=== PATIENT | female | born 1995 | race Caucasian/White ===

== ENCOUNTER → 2022-02-06 08:47 | Outpatient (BNVA) | payer BC, SELFPAY | PROVIDERS: PCP Family Medicine; Visit Provider Family Medicine | DX: Z13.1 Encounter for screening for diabetes mellitus (principal); R53.83 Other fatigue; Z13.6 Encounter for screening for cardiovascular disorders; Z68.41 Body mass index [BMI] 40.0-44.9, adult; Z12.4 Encounter for screening for malignant neoplasm of cervix; G44.229 Chronic tension-type headache, not intractable; G47.09 Other insomnia | CPT/HCPCS: 80053; 80061; 82607; 82652; 84443; 85025; 88175 ==

== ENCOUNTER → 2022-07-08 11:57 | Outpatient (BNVA) | payer BC, SELFPAY | PROVIDERS: PCP Family Medicine; Visit Provider Emergency Medicine | DX: T61.91XA Toxic effect of unspecified seafood, accidental (unintentional), initial encounter (principal); R68.89 Other general symptoms and signs | CPT/HCPCS: 87426 ==

== ENCOUNTER → 2023-04-18 09:27 | Outpatient (BNVA) | payer BC, SELFPAY | PROVIDERS: PCP Family Medicine; Visit Provider Emergency Medicine | DX: N92.6 Irregular menstruation, unspecified (principal) | CPT/HCPCS: 84703; 87491; 87591; 87661 ==

== ENCOUNTER → 2023-09-23 10:28 | Outpatient (BNVA) | payer BC, SELFPAY | PROVIDERS: PCP Family Medicine; Visit Provider Nurse Practitioner Family | DX: N91.2 Amenorrhea, unspecified; Z32.01 Encounter for pregnancy test, result positive | CPT/HCPCS: 81025; 84702 ==